=== PATIENT | female | born 1955 | race African-American/Black ===

== ENCOUNTER 2017-03-16 11:00 | Emergency (ER) | END 2017-03-16 16:21 | disposition home or self-care (01) ==

== ENCOUNTER 2018-10-27 21:21 | Emergency (ER) | payer OTHER ==
[~2018-10-27] VITALS: Ht 172.7 cm; Wt 100.1 kg
[~2018-10-27 21:21] MED LIST: ALBU18HF INHALATION; ALBU8.5H8 INH; CABE0.5T; CIPR500T4 PO; CYCL10TA7; ENAL20TA77; FLUT16SP17 NASAL; IBUP800T48 PO; LEVO750T25 PO; MAXIDE; MED4DP PO; METF-849; METF500T24; PHEN-537 PO; POLY10DR19 BOTH EYES
[2018-10-27 21:23] VITALS: Ht 172.7 cm; Wt 100.1 kg
[2018-10-27] MEDS ORDERED: SOD CHLORIDE 0.9% 1,000 ML IV STA (21:41)
[2018-10-27] MEDS ORDERED: KETOROLAC 15 MG INJ IV STA (21:41)
[2018-10-27] MEDS ORDERED: CEFTRIAXONE 1 GM/50 ML (PMX) 50 ML IVPB STA (21:41)
[2018-10-27] MEDS ORDERED: ENALAPRIL 20 MG TAB PO ONE (23:30)
[2018-10-28 00:56] VITALS: BP 154/89; PULSE 80; RESP 16
== END 2018-10-28 01:01 | disposition home or self-care (01) ==
LOC: E/R 21:21
DX: R30.0 Dysuria (principal); R07.9 Chest pain, unspecified; E11.9 Type 2 diabetes mellitus without complications; I10 Essential (primary) hypertension; J45.909 Unspecified asthma, uncomplicated; F17.210 Nicotine dependence, cigarettes, uncomplicated; Z85.841 Personal history of malignant neoplasm of brain; Z79.84 Long term (current) use of oral hypoglycemic drugs
CPT/HCPCS: 36415; 80048; 81001; 84484; 85025; 87040; 87086; 93005; 96365; 96375; J0696; J1885; J7030; Z7502; Z7610

== ENCOUNTER 2018-10-29 10:48 | Emergency (ER) | payer OTHER ==
[~2018-10-29] VITALS: Ht 172.7 cm; Wt 99.8 kg
[~2018-10-29 10:48] MED LIST changes: -CABE0.5T; -CYCL10TA7; -FLUT16SP17 NASAL; -LEVO750T25 PO; -MAXIDE; -MED4DP PO; -METF-849; -POLY10DR19 BOTH EYES
[2018-10-29 10:54] VITALS: BP 152/80; PULSE 84; RESP 16; Ht 172.7 cm; Wt 99.8 kg
== END 2018-10-29 11:30 | disposition home or self-care (01) ==
LOC: E/R 10:48
DX: Z00.00 Encounter for general adult medical examination without abnormal findings (principal); I10 Essential (primary) hypertension; E11.9 Type 2 diabetes mellitus without complications; J45.909 Unspecified asthma, uncomplicated; Z79.84 Long term (current) use of oral hypoglycemic drugs
CPT/HCPCS: 99283